=== PATIENT | female | born 1985 | race Two or more races ===

== ENCOUNTER 2017-01-24 01:13 | Emergency (ER) | payer OTHER ==
[~2017-01-24] VITALS: Ht 172.7 cm; Wt 77.1 kg
[2017-01-24 01:30] VITALS: BP 107/70
[2017-01-24 01:45] VITALS: BP 109/72
--- NOTE | 2017-01-24 02:51 | Emergency Room Report ---
History of Present Illness General Chief Complaint: Medical Clearance Source: Patient Present Illness HPI Patient is a 32-year-old female presented after having been arrested by police. The patient is here for medical clearance. The patient was noted to have her peripheral inserted central catheter still present. The patient been receiving IV antibiotics several months ago after abscess infection. The patient had not had IV access removed. Allergies: Coded Allergies: No Known Allergies (Unverified , 01/24/17) Patient History Past Medical History: see triage record Last Menstrual Period: January Reviewed Nursing Documentation: PMH: Agreed, PSxH: Agreed Review of Systems All Other Systems: negative except mentioned in HPI Physical Exam Vital Signs Date Time Temp Pulse Resp B/P Pulse Ox O2 Delivery O2 Flow Rate FiO2 01/24/17 01:26 97.0 59 16 107/70 100 Room Air General Appearance: well appearing, no apparent distress, alert, GCS 15 Head: normocephalic, atraumatic ENT: hearing grossly normal, normal voice Neck: full range of motion, supple Respiratory: chest non-tender, lungs clear, no respiratory distress, speaking full sentences Cardiovascular #1: normal peripheral pulses, regular rate, rhythm, no edema Gastrointestinal: normal inspection, normal bowel sounds, non tender, soft Musculoskeletal: normal inspection, no calf tenderness Neurologic: normal inspection, alert, oriented x3, responsive, normal gait Psychiatric: mood/affect normal Skin: no rash, other - multiple track tong Medical Decision Making Diagnostic Impression: Primary Impression: PIC line (peripherally inserted central catheter) removal ER Course The patient presented for removal of PICC line. Medical clearance. The patient does not appear to have need for current IV access. The PICC line was removed with traction. A sterile dressing was applied. Patient tolerated well. The patient was medically cleared for booking. Last Vital Signs Date Time Temp Pulse Resp B/P Pulse Ox O2 Delivery O2 Flow Rate FiO2 01/24/17 01:45 97.0 61 15 109/72 100 Room Air Status: improved Disposition: D/C TO LAW ENFORCEMENT IN [facility] Condition: Stable Referrals: NOT CHOSEN IPA/,REFERRING (PCP) Departure Forms: Penitentiary Clearance Patient Instructions: PICC Removal, Care After Jose Gardiner Jan 24, 2017 02:51
== END 2017-01-24 01:45 ==
LOC: EMR 01:39
DX: Z45.2 Encounter for adjustment and management of vascular access device (principal)